=== PATIENT | male | born 1950 | race Caucasian/White ===

== ENCOUNTER → 2017-02-14 | Outpatient (CLI) | payer MEDICARE, MEDICAID | LOC: GT 07:57 | PROVIDERS: ATTEND Internal Medicine | DX: E87.1 Hypo-osmolality and hyponatremia (principal) ==

== ENCOUNTER → 2017-03-14 | Outpatient (CLI) | payer MEDICARE, MEDICAID | END | disposition home or self-care (01) | LOC: GT 06:21 | PROVIDERS: ATTEND Internal Medicine | DX: R35.0 Frequency of micturition (principal) | CPT/HCPCS: 36415; 84153; P9603 ==

== ENCOUNTER → 2017-05-02 | Outpatient (CLI) | payer MEDICARE, MEDICAID | LOC: GT 07:06 | PROVIDERS: ATTEND Internal Medicine | DX: N18.6 End stage renal disease (principal); E87.1 Hypo-osmolality and hyponatremia; E87.2 Acidosis; E87.5 Hyperkalemia; N40.1 Benign prostatic hyperplasia with lower urinary tract symptoms; D64.9 Anemia, unspecified; M62.50 Muscle wasting and atrophy, not elsewhere classified, unspecified site; I10 Essential (primary) hypertension; M62.81 Muscle weakness (generalized) | CPT/HCPCS: 36415; 80053; 83540; P9603 ==

== ENCOUNTER 2020-01-11 13:38 | Emergency (ER) | payer MEDICARE, MEDICAID ==
--- NOTE | 2020-01-11 13:46 | ED.PDOC ---
History of Present Illness - General Time Seen by Provider: 01/11/20 13:44 Source: patient - History of Present Illness Initial Comments: 69 yo male with PMH of ESRD on HD (MWF) who is sent from [facility] for cc of cough and fever. Patient reports onset of symptoms 3 days ago at the group home. He reports occasional nonproductive cough, nasal congestion, and intermittent fevers with T-max of 104 Fahrenheit at group home 3 days ago. This morning he tested positive for COVID-19 so the group home sent the patient to the ED for further evaluation. Patient reports his symptoms are moderate severity. He has been given some [id number] as needed medications at the group home with good control of symptoms. Additionally he reports some loss of taste and smell, decreased appetite, mild sore throat, and a few episodes of nonbloody nonbilious emesis since yesterday. Denies any chest pain, dyspnea, abd pain, diarrhea, leg swelling, ANDERSON/body aches. Many other [place] residents have also recently tested positive for COVID-19. Pt was reported to have hypoxia at [place] but on arrival here noted to be 99% SpO2 on RA. PCP is Dr. Alvarez. Allergies/Adverse Reactions: Allergies NO KNOWN ALLERGY Allergy (Verified 01/11/20 13:58) Home Medications: Ambulatory Orders Azithromycin Tab [Zithromax Tab] 250 mg PO DAILY 4 Days #4 tab 01/11/20 Ondansetron Odt [Zofran ODT] 8 mg PO Q8H PRN 7 Days #10 tab 01/11/20 Review of Systems - Review of Systems Review of Systems: 01/11/20 14:52 as per HPI All other Systems: Reviewed and Negative Family Medical History - Family History Mother Family History: Unknown Physical Exam - Physical Exam General Appearance: Alert, Comfortable, No apparent distress Eye Exam: bilateral normal Ears, Nose, Throat: hearing grossly normal, normal ENT inspection, normal pharynx Neck: full range of motion, supple, normal inspection Respiratory: no respiratory distress, no accessory muscle use, rales - Faint bibasilar rales noted w/o rhonchi or wheezing, good air movement throughout Cardiovascular/Chest: normal peripheral pulses, regular rate, rhythm, no edema, systolic murmur - 3/6 systolic murmur best heard at LUSB Peripheral Pulses: radial,right: 2+, radial,left: 2+ Gastrointestinal/Abdominal: normal bowel sounds, non tender, soft, no organomegaly Back Exam: normal inspection, no CVA tenderness Extremity: normal range of motion, non-tender, normal inspection, no pedal edema, no calf tenderness, other - AV fistula noted to distal LUE with good palpable thrill Neurologic: party chief II-XII nml as tested, no motor/sensory deficits, alert, normal mood/affect Skin Exam: normal color, warm/dry Progress - Progress Progress: 01/11/20 15:02 Cough, fevers -suspect due to COVID-19 PNA. Consider also bacterial PNA, sepsis, ACS, CHF, pulmonary edema, PE, DVT, flu, strep, other -pt HD stable on arrival -obtain COVID-19 panel, cardiac work-up -place PIV 01/11/20 15:56 -Pt remains stable. Still no CP, dyspnea. SpO2 98% on room air, breathing comfortably. Vitals remain normal. -Labs reveal CRP 7.8, D-dimer 1800, BNP 325, trop 0.03, WBC 5,500 w/o left shift or bands, H/H 11.5/33, PLTs 204,000. BUN/Cr elevated from ESRD. Labs otherwise largely unremarkable from chronic. -CXR no acute processes -Suspect elevated d-dimer from COVID-19 infection. Very low concern for PE currently given lack of chest sx's and normal SpO2 on RA. Pt has no documented hx of DVT/PE and does not take anticoagulation. -Discussed with Dr. Alvarez for possible disposition as finding a transfer bed will be very difficult in this otherwise stable patient. Pt unable to be admitt ed here since he requires hemodialysis. Will call back. 01/11/20 16:39 -Humberto Taylor spoke with Dr. Serra (nephrology at [facility]), who states pt may be discharged back to [place]. He will repeat labs at HD tomorrow, which patient will receive in a quarantine unit. -Will dc back to [facility] in good condition. Return warnings discussed at length. For strep pharyngitis, will treat with Azithromycin 500 mg (in ED), followed by 250 mg daily x4 days. This may also offer some benefit for COVID-19 as well. Zofran PRN Rx also given. 01/11/20 18:52 -Unable to dc back to [facility] as no more COVID beds available. Thus pt will be dc'd to [facility] temporarily until a bed becomes available back at [facility]. Brando Blandon MD Billing #[id number] 01/11/20 13:46 IV Care:Saline Lock per [employer] STAT Isolation:Airborne ONCE Telemetry STAT UA [URINALYSIS] Stat 01/11/20 14:00 EKG STAT Pulse Ox, Continuous Monitoring STAT 01/11/20 15:10 RESPIRATORY PANEL 2 Stat 01/11/20 15:40 INFLUENZA A & B BY PCR Stat GROUP A STREP SCREEN, RAPID Stat 01/12/20 14:00 Pulse Ox, Continuous Monitoring STAT 01/13/20 14:00 Pulse Ox, Continuous Monitoring STAT Laboratory Results - last 24 hr 01/11/20 01/11/20 01/11/20 14:12 14:12 14:12 WBC 5.5 RBC 3.74 L Hgb 11.5 L Hct 33.7 L MCV 90.3 MCH 30.7 MCHC 34.0 RDW 16.4 H Plt Count 204 MPV 7.4 Absolute Neuts (auto) 3.10 Absolute Lymphs (auto) 1.40 Absolute Monos (auto) 0.70 Absolute Eos (auto) 0.20 Absolute Basos (auto) 0.10 Neutrophils % 56.1 Lymphocytes % 25.9 Monocytes % 13.1 H Eosinophils % 3.4 Basophils % 1.5 PTT (SP) 30.4 D-Dimer, Quantitative 1800.0 H* Sodium 135 Potassium 4.0 Chloride 89 L Carbon Dioxide 29 Anion Gap 21.0 H BUN 45 H Creatinine 8.24 H* BUN/Creatinine Ratio 5.5 L Random Glucose 87 Serum Osmolality 281.0 Calcium 8.6 Magnesium 2.2 Total Bilirubin 0.6 AST 17 ALT 20 Alkaline Phosphatase 64 LD Total 119 Creatine Kinase 122 Troponin I C-Reactive Protein 7.8 H B-Natriuretic Peptide 325.0 H* Serum Total Protein 7.7 Albumin 3.4 Globulin 4.3 H Albumin/Globulin Ratio 0.8 L 01/11/20 14:12 WBC RBC Hgb Hct MCV MCH MCHC RDW Plt Count MPV Absolute Neuts (auto) Absolute Lymphs (auto) Absolute Monos (auto) Absolute Eos (auto) Absolute Basos (auto) Neutrophils % Lymphocytes % Monocytes % Eosinophils % Basophils % PTT (SP) D-Dimer, Quantitative Sodium Potassium Chloride Carbon Dioxide Anion Gap BUN Creatinine BUN/Creatinine Ratio Random Glucose Serum Osmolality Calcium Magnesium Total Bilirubin AST ALT Alkaline Phosphatase LD Total Creatine Kinase Troponin I 0.03 C-Reactive Protein B-Natriuretic Peptide Serum Total Protein Albumin Globulin Albumin/Globulin Ratio - EKG/XRAY/CT EKG: Sinus - Normal sinus rhythm with frequent PVCs, heart rate 70, no ST elevations or Q waves noted, axis normal, intervals normal, LVH criteria present, no prior EKG for comparison. XRAY: chest - Per my read, no acute processes. Cardiomegaly noted w/o evidence of pulmonary edema/fluid overload. Departure - Departure Clinical Impression: COVID-19, Strep pharyngitis, Elevated d-dimer Time of Disposition: 16:36 Disposition: Discharge to SNF Condition: Good Departure Forms: ED Discharge - Pt. Copy, Patient Portal Self Enrollment Instructions: Strep Throat (DC), Coronavirus Disease 2019 (COVID-19) Diet: resume usual diet Activity: increase activity as tolerated Referrals: SHAYNE MARMOLEJO [Primary Care Provider] - 1-2 Weeks Prescriptions: Azithromycin Tab [Zithromax Tab] 250 mg PO DAILY 4 Days #4 tab Ondansetron Odt [Zofran ODT] 8 mg PO Q8H PRN 7 Days #10 tab PRN Reason: Nausea Home Medications: Ambulatory Orders Azithromycin Tab [Zithromax Tab] 250 mg PO DAILY 4 Days #4 tab 01/11/20 Ondansetron Odt [Zofran ODT] 8 mg PO Q8H PRN 7 Days #10 tab 01/11/20 Additional Instructions: Take the antibiotics as directed for treatment of strep pharyngitis. Return to the ED if you develop concerning symptoms such as chest pain, shortness of breath, abdominal pain, intractable nausea & vomiting, large volume or frequent diarrhea, etc... Follow up with your primary care physician in the next 5-7 days for repeat evaluation is recommended. Dr. Serra has you scheduled for outpatient dialysis tomorrow in a quarantine unit.
--- NOTE | 2020-01-11 14:14 | RAD ---
EXAM DESCRIPTION: Chest,1 View CLINICAL HISTORY: 69 years Male, dyspnea, COVID-19+ COMPARISON: None. TECHNIQUE: AP portable chest. FINDINGS: Heart size is prominent with normal pulmonary vascularity. No consolidating infiltrate. No pulmonary mass or worrisome nodule. No pneumothorax or pleural effusion. Advanced arthritic changes of the shoulders. IMPRESSION: No acute process is identified in the chest. Electronically signed by: Moody Rodas MD 01/11/2020 2:13 PM IRON CARRIER
[2020-01-11] MEDS ORDERED: AZITHROMYCIN 250 MG TAB PO ONE (16:35)
[2020-01-11 18:36] VITALS: BP 138/78; TEMP 98.4; O2SAT 96
== END 2020-01-11 18:35 ==
LOC: ER 13:38
DX: U07.1 COVID-19 (principal); J02.0 Streptococcal pharyngitis; R79.89 Other specified abnormal findings of blood chemistry; I49.3 Ventricular premature depolarization; N18.6 End stage renal disease; I51.7 Cardiomegaly; Z99.2 Dependence on renal dialysis
CPT/HCPCS: 36415; 71045; 80053; 82550; 83615; 83735; 83880; 84484; 85025; 85379; 85730; 86140; 87486; 87502; 87581; 87633; 87635; 87880; 93005; Q0144

== ENCOUNTER 2020-01-16 01:48 | Emergency (ER) | payer MEDICARE, MEDICAID ==
[2020-01-16] MEDS ORDERED: DEXAMETHASONE INJ 10 MG/ML VIAL IV ONE (02:09)
--- NOTE | 2020-01-16 02:17 | ED.PDOC ---
History of Present Illness - General Chief Complaint: Respiratory Problem Stated Complaint: low sats, elevated temp Time Seen by Provider: 01/16/20 02:09 Source: patient, RN/MD, EMS - History of Present Illness Comments: The patient is a 69 year old male with PMH significant for ESRD on HD who is sent from [facility] for evaluation of fever and hypoxia. He was seen five days ago with cough and fever after testing positive for COVID-19. He complains of occasional dry cough and fever. he denies nausea/vomiting, shortness of breath, diarrhea or any other symptoms. He states that his symptoms are mild in severity. No other complaints at this time. Per EMS, the senior living found him to be febrile and administered tylenol and stated that his room air oxygen saturation was 54%, however, he was 89% on room air on arrival. Allergies/Adverse Reactions: Allergies NO KNOWN ALLERGY Allergy (Verified 01/11/20 13:58) Home Medications: Ambulatory Orders Azithromycin Tab [Zithromax Tab] 250 mg PO DAILY 4 Days #4 tab 01/11/20 Ondansetron Odt [Zofran ODT] 8 mg PO Q8H PRN 7 Days #10 tab 01/11/20 Azithromycin Tab [Zithromax Tab] 250 mg PO QDPC #4 tab 01/16/20 Cefpodoxime Proxetil 200 mg PO DAILY #10 tab 01/16/20 Dexamethasone Tab [Decadron Tab] 4 mg PO DAILY #7 tab 01/16/20 Review of Systems - Review of Systems Constitutional: States: chills, fever, malaise EENTM: States: no symptoms reported Respiratory: States: cough, short of breath Cardiology: Denies: chest pain, palpitations Gastrointestinal/Abdominal: Denies: abdominal pain, diarrhea, nausea, vomiting Genitourinary: Denies: dysuria, frequency, hematuria Musculoskeletal: States: no symptoms reported Skin: States: no symptoms reported Neurological: States: no symptoms reported Endocrine: States: no symptoms reported Hematologic/Lymphatic: States: no symptoms reported All other Systems: Reviewed and Negative Past Medical History (General) - Patient Medical History Hx Hypertension: Yes - Vaccination History Hx Influenza Vaccination: Yes Hx Pneumococcal Vaccination: Yes - Social History Hx Tobacco Use: No Hx Alcohol Use: No Hx Substance Use: No Hx Substance Use Treatment: No Hx Depression: No Family Medical History - Family History Mother Family History: Unknown Physical Exam - Physical Exam General Appearance: Alert, No apparent distress ENT Exam: normal ENT inspection, hearing grossly normal Neck: non-tender, full range of motion, supple, normal inspection Respiratory: normal breath sounds, no respiratory distress, no accessory muscle use Cardiovascular/Chest: normal peripheral pulses, regular rate, rhythm, no edema, no gallop Gastrointestinal/Abdominal: normal bowel sounds, non tender, soft, no organomegaly, no pulsatile mass Extremity: normal range of motion, non-tender Neurologic: no motor/sensory deficits, alert, oriented x 3 Skin Exam: normal color Progress - Progress Progress: 01/16/20 04:08 Patient reassessed, 97% on 2L NC and no increased WOB. Discussed admit but wants to be discharged. Will continue outpatient therapy with decadron, antibiotics. - Results/Orders Results/Orders: 01/16/20 02:09 Chest,1 View [RAD] Stat 01/16/20 02:53 EKG Assessment ONCE 01/16/20 03:00 EKG STAT 01/16/20 04:03 Azithromycin IV [Zithromax IV] 500 mg Sodium Chloride 0.9% 250Ml [NS 250ml] 250 ml IVPB ONCE cefTRIAXone SODIUM [Rocephin] 1 gm Sodium Chl 0.9% 50Ml Min-Bag+ [NS 50ml MINI-BAG+] 50 ml IVPB ONCE Laboratory Results - last 24 hr 01/16/20 01/16/20 02:00 02:00 WBC 7.0 RBC 3.84 L Hgb 11.7 L Hct 34.2 L MCV 89.1 MCH 30.6 MCHC 34.3 RDW 16.5 H Plt Count 193 MPV 8.0 Absolute Neuts (auto) 5.50 Absolute Lymphs (auto) 1.00 Absolute Monos (auto) 0.50 Absolute Eos (auto) 0.00 Absolute Basos (auto) 0.00 Neutrophils % 78.6 H Lymphocytes % 13.6 L Monocytes % 7.3 Eosinophils % 0.0 L Basophils % 0.5 PT 10.5 INR 1.06 PTT (SP) 31.4 D-Dimer, Quantitative 1920.0 H* Sodium 137 Potassium 3.2 L Chloride 90 L Carbon Dioxide 31 Anion Gap 19.2 H BUN 36 H Creatinine 7.56 H* BUN/Creatinine Ratio 4.8 L Random Glucose 111 H Serum Osmolality 282.8 Calcium 8.7 Magnesium 2.0 Creatine Kinase 160 CK-MB (CK-2) 1.2 CK-MB (CK-2) % Not Reportable Troponin I 0.05 MDM: Patient presents with fever and hypoxia. Workup as above. He is stable on 2L nasal cannula and does not have any increased work of breathing. Suspect secondary to COVID-19 vs possible small pneumonia. Started on rocephin and azithromycin in the ED. Discussed admission with the patient but he reported no symptoms and stated that he would like to go back to nursing facility. Risks and benefits reviewed. Confirmed with NH that they will be able to continue oxygen therapy via NC. Will start steroids, oral antibiotics. Home care and return indications reviewed. Departure - Departure Clinical Impression: COVID-19 Pneumonia Qualifiers: Pneumonia type: due to unspecified organism Laterality: right Lung location: middle lobe of lung Qualified Code(s): J18.9 - Pneumonia, unspecified organism Time of Disposition: 04:09 Disposition: Discharge to SNF Condition: Fair Departure Forms: ED Discharge - Pt. Copy, Patient Portal Self Enrollment Instructions: Community-Acquired Pneumonia, Adult (DC), Coronavirus Disease 2019 (COVID-19) Diet: resume usual diet Activity: increase activity as tolerated Referrals: SHAYNE MARMOLEJO [Primary Care Provider] - 1-2 Weeks Prescriptions: Cefpodoxime Proxetil 200 mg PO DAILY #10 tab Dexamethasone Tab [Decadron Tab] 4 mg PO DAILY #7 tab Azithromycin Tab [Zithromax Tab] 250 mg PO QDPC #4 tab Home Medications: Ambulatory Orders Azithromycin Tab [Zithromax Tab] 250 mg PO DAILY 4 Days #4 tab 01/11/20 Ondansetron Odt [Zofran ODT] 8 mg PO Q8H PRN 7 Days #10 tab 01/11/20 Azithromycin Tab [Zithromax Tab] 250 mg PO QDPC #4 tab 01/16/20 Cefpodoxime Proxetil 200 mg PO DAILY #10 tab 01/16/20 Dexamethasone Tab [Decadron Tab] 4 mg PO DAILY #7 tab 01/16/20
--- NOTE | 2020-01-16 03:55 | CT ---
EXAM DESCRIPTION: CTA Chest 01/16/2020 3:47 AM BIOTECHNICIAN CLINICAL HISTORY: 69 years, Male, shortness of breath, elevated d-dimer COMPARISON: Previous CT scan of the abdomen performed 09/29/2009 PROCEDURE: Multiple transaxial tomograms of the chest were obtained from the lung apices through the lung bases utilizing 2 mm slice thickness at 2 mm interval reconstruction after the administration of large bolus of IV contrast for complete opacification of the pulmonary arteries. Subsequent maximum intensity projection images were generated in the coronal and sagittal plane for review. An individualized dose optimization technique, Automated Exposure Control, was utilized for the performed procedure. FINDINGS: Several images are degraded by motion artifact limiting diagnostic value. There is small focus area of airspace opacity along the posterior segment right lower lobe, this is best identified on image [id number] suggestive of atelectatic changes and/or pneumonia. Minimal opacity and/or atelectasis is noted within the superior segment of the left lower lobe on image [id number]. Questionable calcified granulomas noted within the posterior segment left lower lobe on axial image 67 and coronal image 100. The trachea mainstem bronchus demonstrate to be normal. There is no significant pericardial or pleural effusions. The thoracic aorta demonstrate minimal intimal aortic arch calcification. No evidence for thoracic aortic dissection. The heart is normal in size. No evidence for right ventricular strain. There are coronary artery calcification along the LAD and right coronary artery. There is no significant mediastinal and/or hilar lymphadenopathy. The axillary regions demonstrate to be clear. Grossly the pulmonary arteries demonstrate to be normal, no significant intraluminal defect are seen that would suggest pulmonary embolus. Although the evaluation of the tertiary branches are compromised due to motion artifact. The axillary bone windows demonstrate no significant skeletal lesions. The visualized portions of the upper abdomen demonstrate to be unremarkable. IMPRESSION: COMPARISON STUDY DUE TO MOTION ARTIFACT LIMITING DIAGNOSTIC VALUE. NO GROSS EVIDENCE FOR PULMONARY EMBOLUS AND/OR SIGNIFICANT THORACIC AORTIC THORACIC DISSECTION. QUESTIONABLE SMALL FOCAL AREA OF AIRSPACE OPACITY ALONG THE MEDIAL ASPECT POSTERIOR SEGMENT RIGHT LOWER LOBE/CP ANGLE IN/OR RELATED TO ATELECTASIS. SIMILAR LESS PRONOUNCED FINDINGS ARE IDENTIFIED WITHIN THE SUPERIOR SEGMENT OF THE LEFT LOWER LOBE. Electronically signed by: Hardik Garcia MD 01/16/2020 3:54 AM BIOTECHNICIAN
[2020-01-16] MEDS ORDERED: cefTRIAXone SODIUM 1 GM in SODIUM CHL 0.9% 50ML MIN-BAG+ 50 ML IVPB ONE (04:03)
[2020-01-16] MEDS ORDERED: AZITHROMYCIN IV 500 MG in SODIUM CHLORIDE 0.9% 250ML 250 ML IVPB ONE (04:03)
[2020-01-16 04:12] VITALS: TEMP 98.7
[2020-01-16 06:59] VITALS: BP 107/75; O2SAT 96
== END 2020-01-16 07:05 ==
LOC: ER 01:48
DX: U07.1 COVID-19 (principal); J12.89 Other viral pneumonia; N18.6 End stage renal disease; I10 Essential (primary) hypertension; Z99.2 Dependence on renal dialysis
CPT/HCPCS: 71275; 80048; 82550; 82553; 84484; 85025; 85379; 85610; 85730; J0456; J0696; J1100; J7050

== ENCOUNTER → 2020-01-18 | Outpatient (CLI) | payer MEDICARE, MEDICAID | LOC: GT 08:13 | PROVIDERS: ATTEND Family Medicine | DX: R09.02 Hypoxemia (principal); R71.8 Other abnormality of red blood cells ==

== ENCOUNTER → 2020-01-24 | Outpatient (CLI) | payer MEDICARE, MEDICAID | LOC: GT 23:01 | PROVIDERS: ATTEND Internal Medicine | DX: I10 Essential (primary) hypertension (principal) ==

== ENCOUNTER → 2020-01-25 | Outpatient (CLI) | payer MEDICARE, MEDICAID | LOC: GT 21:48 | PROVIDERS: ATTEND Internal Medicine | DX: N28.9 Disorder of kidney and ureter, unspecified (principal) ==

== ENCOUNTER 2020-01-26 15:42 | Emergency (ER) | payer MEDICARE, OTHER ==
--- NOTE | 2020-01-26 16:05 | ED.PDOC ---
History of Present Illness - General Chief Complaint: GI Problem Time Seen by Provider: 01/26/20 15:59 - History of Present Illness Initial Comments: 69 yo M PMH ESRD from assisted dialysis today sent to ED for rect bleeding today. Pt. is a poor historian. Per report pt is covid+ day #14. Denies fever cough sob recent travel. Denies fever chills nausea vomiting unsure of diarrhea admits chest pain and sob denies diaphoresis. No change in diet no other c/o today. PPE worn-N95 surgical mask with attached face shield over N95 gloves and face shield over that Allergies/Adverse Reactions: Allergies NO KNOWN ALLERGY Allergy (Verified 01/16/20 04:31) Home Medications: Ambulatory Orders Azithromycin Tab [Zithromax Tab] 250 mg PO DAILY 4 Days #4 tab 01/11/20 Ondansetron Odt [Zofran ODT] 8 mg PO Q8H PRN 7 Days #10 tab 01/11/20 Azithromycin Tab [Zithromax Tab] 250 mg PO QDPC #4 tab 01/16/20 Cefpodoxime Proxetil 200 mg PO DAILY #10 tab 01/16/20 Dexamethasone Tab [Decadron Tab] 4 mg PO DAILY #7 tab 01/16/20 Review of Systems - Review of Systems Constitutional: States: see HPI EENTM: States: see HPI Respiratory: States: see HPI Cardiology: States: see HPI Gastrointestinal/Abdominal: States: see HPI Genitourinary: States: see HPI Musculoskeletal: States: see HPI Skin: States: see HPI Neurological: States: see HPI Endocrine: States: see HPI All other Systems: Reviewed and Negative Past Medical History (General) - Patient Medical History Hx Congestive Heart Failure: No Hx Hypertension: Yes Hx Diabetes: No Hx Gastroesophageal Reflux: Yes Hx Renal Disease: Yes - Vaccination History Hx Influenza Vaccination: Yes Hx Pneumococcal Vaccination: Yes - Social History Hx Tobacco Use: No Hx Alcohol Use: No Hx Substance Use: No Hx Substance Use Treatment: No Hx Depression: No Family Medical History - Family History Mother Family History: Unknown Physical Exam - Physical Exam General Appearance: No apparent distress Eye Exam: bilateral normal Ears, Nose, Throat: normal ENT inspection Neck: non-tender Respiratory: no respiratory distress Cardiovascular/Chest: regular rate, rhythm, irregularly irregular Gastrointestinal/Abdominal: non tender, soft Rectal Exam: deferred Back Exam: normal inspection Extremity: non-tender, other - Dialysis shunt good thrill left forearm Neurologic: no motor/sensory deficits Skin Exam: normal color Progress - Progress Progress: 01/26/20 16:06 A/P-Chest Pain LGIB-iv cbc cmp trop pt ptt cxr ct abdomen pelvis reassess EKG-Non specific TW changes 86bpm with underlying flutter waves approx 2:1 motion artifact no STEMI 01/26/20 16:27 01/26/20 16:47 Laboratory Tests 01/26/20 01/26/20 01/26/20 16:19 16:19 16:19 PT 12.2 H INR 1.23 H PTT (SP) 24.2 Sodium 136 Potassium 3.6 Chloride 90 L Carbon Dioxide 27 Anion Gap 22.6 H BUN 51 H D Creatinine 5.32 H BUN/Creatinine Ratio 9.6 L Random Glucose 125 H Serum Osmolality 287.1 Lactic Acid Calcium 8.4 Total Bilirubin 0.8 AST 37 ALT 32 Alkaline Phosphatase 57 Troponin I 0.02 Serum Total Protein 6.7 Albumin 2.6 L Globulin 4.1 H Albumin/Globulin Ratio 0.6 L 01/26/20 16:19 PT INR PTT (SP) Sodium Potassium Chloride Carbon Dioxide Anion Gap BUN Creatinine BUN/Creatinine Ratio Random Glucose Serum Osmolality Lactic Acid 3.7 H* Calcium Total Bilirubin AST ALT Alkaline Phosphatase Troponin I Serum Total Protein Albumin Globulin Albumin/Globulin Ratio Pt. with lactic acidosis and Pneumonia, Sepsis, known COVID positive started zosyn vancomycin fluids and protonix 01/26/20 16:50 EXAM DESCRIPTION: Chest,1 View CLINICAL HISTORY: 69 years Male, abdominal pain rectal bleed COMPARISON: Previous study January 11, 2020 TECHNIQUE: AP po rtable chest. FINDINGS: Heart size is large with centrally increased pulmonary vascularity. Patchy infiltrates are seen in the perihilar regions and in both lower lobes. Patchy infiltrate in the left upper lobe. There is sparing of the right apex. These findings appear new or increased compared to previous study. No pulmonary mass or worrisome nodule. No pneumothorax or pleural effusion. Advanced arthritic changes of the shoulders. Bones are otherwise unremarkable. IMPRESSION: Bilateral pulmonary infiltrates consistent with pneumonia. Electronically signed by: Moody Rodas MD 01/26/2020 4:16 PM [employer] 01/26/20 17:46 EXAM DESCRIPTION: Abdoment/Pelvis w/o Contrast CLINICAL HISTORY: 69 years, Male, rectal bleeding COMPARISON: Abdominal sonogram July 03, 2011, CT abdomen and pelvis July 17, 2011 TECHNIQUE: CT of the abdomen and pelvis is performed according to our non contrast protocol. FINDINGS: The lung bases are abnormal with infiltrates consistent with pneumonia. The heart is large with extensive coronary arterial calcification. Liver, spleen, and pancreas are unremarkable. Adrenal glands appear normal. Abnormal kidneys with atrophic parenchyma consistent with chronic renal parenchymal disease. Renal cysts are simple and hemorrhagic. This impression could be confirmed with sonography. Patient had a previous abdominal sonogram July 03, 2011 which showed bilateral renal cysts which were smaller at that time. Calcifications are present consistent with nonobstructing stone in the lower calyx of the right kidney as well as tiny punctate calculi or vascular calcifications in the left kidney.. Small bowel loops appear normal in caliber with normal wall thickness. There is no lymphadenopathy, inflammation, or free fluid observed. Ventral herniation of fat at the umbilical level. In the pelvis, the appendix is normal. No inflammation around the cecum or terminal ileum or sigmoid colon. No stones in the distal ureters or bladder. Bladder appears thick-walled and a bladder mass cannot be excluded on the axial images. Sagittal images are less worrisome however. Sono examination of a distended urinary bladder may be helpful to rule out pathologic diffuse bladder wall thickening or infiltrative neoplasm of the anterosuperior bladder wall. Rectal wall thickness is normal for degree of distention. No free fluid or mass in the pelvis. Prostate appears prominent measuring 4.3 cm in transverse dimension. Bilateral erosion of the hip joints with acetabular protrusion. Mass in the right obturator region is likely related to arthritis rather than neoplasm. No inguinal or lower pelvic adenopathy. Coronal and sagittal reformatted images confirm the findings. Chronic subcapital fracture of the proximal left femur with proximal displacement of the major distal fracture fragment and sclerotic margins consistent with nonunion. Severe long-standing osteoarthrosis of the right hip with eroded right femoral head and acetabular fossa. The clinical history is rectal bleeding. No rectal mass is identified. No thickening of the wall of the sigmoid colon. IMPRESSION: Chronic renal parenchymal disease with bilateral renal lesions consistent with cystic and hemorrhagic cysts. Bilateral nonobstructing renal calculi. Prominent prostate with prominent bladder wall thickness. See above. Ventral herniation of fat at the umbilical level. Bilateral pulmonary infiltrates consistent with pneumonia. This exam was performed according to our departmental dose-optimization program, which includes automated exposure control, adjustment of the mA and/or kV according to patient size and/or use of iterative reconstruction technique. Total DLP equals 1276.69 mGycm. Electronically signed by: Moody Rodas MD 01/26/2020 5:03 PM [employer] Laboratory Tests 01/26/20 01/26/20 01/26/20 16:19 16:19 16:19 WBC 14.3 H RBC 4.20 L Hgb 12.9 L Hct 37.3 L MCV 88.9 MCH 30.7 MCHC 34.5 RDW 17.1 H Plt Count 347 MPV 8.0 Absolute Neuts (auto) Not Reportable Absolute Lymphs (auto) Not Reportable Absolute Monos (auto) Not Reportable Absolute Eos (auto) Not Reportable Neutrophils % Not Reportable Neutrophils % (Manual) 79.0 H Lymphocytes % Not Reportable Lymphocytes % (Manual) 14.0 Monocytes % Not Reportable Monocytes % (Manual) 7.0 Eosinophils % Not Reportable Basophils % Not Reportable Nucleated RBCs 3.0 Platelet Estimate Normal RBC Morphology Normal rbc morph PT 12.2 H INR 1.23 H PTT (SP) 24.2 Sodium 136 Potassium 3.6 Chloride 90 L Carbon Dioxide 27 Anion Gap 22.6 H BUN 51 H D Creatinine 5.32 H BUN/Creatinine Ratio 9.6 L Random Glucose 125 H Serum Osmolality 287.1 Lactic Acid Calcium 8.4 Total Bilirubin 0.8 AST 37 ALT 32 Alkaline Phosphatase 57 Troponin I Serum Total Protein 6.7 Albumin 2.6 L Globulin 4.1 H Albumin/Globulin Ratio 0.6 L Stool Occult Blood 01/26/20 01/26/20 01/26/20 16:19 16:19 16:56 WBC RBC Hgb Hct MCV MCH MCHC RDW Plt Count MPV Absolute Neuts (auto) Absolute Lymphs (auto) Absolute Monos (auto) Absolute Eos (auto) Neutrophils % Neutrophils % (Manual) Lymphocytes % Lymphocytes % (Manual) Monocytes % Monocytes % (Manual) Eosinophils % Basophils % Nucleated RBCs Platelet Estimate RBC Morphology PT INR PTT (SP) Sodium Potassium Chloride Carbon Dioxide Anion Gap BUN Creatinine BUN/Creatinine Ratio Random Glucose Serum Osmolality Lactic Acid 3.7 H* Calcium Total Bilirubin AST ALT Alkaline Phosphatase Troponin I 0.02 Serum Total Protein Albumin Globulin Albumin/Globulin Ratio Stool Occult Blood Positive H 01/26/20 19:[address] Joshua Narvaez [facility] accepts transfer Departure - Departure Clinical Impression: Lactic acidosis, ESRD (end stage renal disease), COVID-19, LGI bleed Pneumonia Qualifiers: Pneumonia type: due to unspecified organism Laterality: unspecified laterality Lung location: unspecified part of lung Qualified Code(s): J18.9 - Pneumonia, unspecified organism Time of Disposition: 19:16 Disposition: Transfer to Hospital Condition: Fair Departure Forms: ED Discharge - Pt. Copy, Patient Portal Self Enrollment Referrals: SHAYNE MARMOLEJO [Primary Care Provider] - 1-2 Days Home Medications: Ambulatory Orders Azithromycin Tab [Zithromax Tab] 250 mg PO DAILY 4 Days #4 tab 01/11/20 Ondansetron Odt [Zofran ODT] 8 mg PO Q8H PRN 7 Days #10 tab 01/11/20 Azithromycin Tab [Zithromax Tab] 250 mg PO QDPC #4 tab 01/16/20 Cefpodoxime Proxetil 200 mg PO DAILY #10 tab 01/16/20 Dexamethasone Tab [Decadron Tab] 4 mg PO DAILY #7 tab 01/16/20 Transfer to Outside Facility - Transfer Information Decision to Transfer Date: 01/26/20 Decision to Transfer Time: 19:16 Reason for Transfer: specialized care not available Accepting Provider:: Dr. Lewis Accepting Facility: [facility]
--- NOTE | 2020-01-26 16:17 | RAD ---
EXAM DESCRIPTION: Chest,1 View CLINICAL HISTORY: 69 years Male, abdominal pain rectal bleed COMPARISON: Previous study January 11, 2020 TECHNIQUE: AP portable chest. FINDINGS: Heart size is large with centrally increased pulmonary vascularity. Patchy infiltrates are seen in the perihilar regions and in both lower lobes. Patchy infiltrate in the left upper lobe. There is sparing of the right apex. These findings appear new or increased compared to previous study. No pulmonary mass or worrisome nodule. No pneumothorax or pleural effusion. Advanced arthritic changes of the shoulders. Bones are otherwise unremarkable. IMPRESSION: Bilateral pulmonary infiltrates consistent with pneumonia. Electronically signed by: Moody Rodas MD 01/26/2020 4:16 PM [facility]
[2020-01-26] MEDS ORDERED: VANCOMYCIN HCL INJ 1,000 MG in SODIUM CHLORIDE 0.9% 250ML 250 ML IVPB ONE (16:44)
[2020-01-26] MEDS ORDERED: SODIUM CHLORIDE 0.9% 1000ML 1,000 ML IVS ONE (16:44)
[2020-01-26] MEDS ORDERED: PIPERACILLIN/TAZOBACTAM 3.375 GM in SODIUM CHLORIDE 0.9% 100ML 100 ML IVPB ONE (16:44)
[2020-01-26] MEDS ORDERED: PANTOPRAZOLE INJECTION 80 MG in SODIUM CHLORIDE 0.9% 100ML 80 ML IVPB ONE (16:45)
[2020-01-26] MEDS ORDERED: DEXAMETHASONE INJ 10 MG/ML VIAL IV ONE (16:53)
--- NOTE | 2020-01-26 17:04 | CT ---
EXAM DESCRIPTION: Abdoment/Pelvis w/o Contrast CLINICAL HISTORY: 69 years, Male, rectal bleeding COMPARISON: Abdominal sonogram July 03, 2011, CT abdomen and pelvis July 17, 2011 TECHNIQUE: CT of the abdomen and pelvis is performed according to our non contrast protocol. FINDINGS: The lung bases are abnormal with infiltrates consistent with pneumonia. The heart is large with extensive coronary arterial calcification. Liver, spleen, and pancreas are unremarkable. Adrenal glands appear normal. Abnormal kidneys with atrophic parenchyma consistent with chronic renal parenchymal disease. Renal cysts are simple and hemorrhagic. This impression could be confirmed with sonography. Patient had a previous abdominal sonogram July 03, 2011 which showed bilateral renal cysts which were smaller at that time. Calcifications are present consistent with nonobstructing stone in the lower calyx of the right kidney as well as tiny punctate calculi or vascular calcifications in the left kidney.. Small bowel loops appear normal in caliber with normal wall thickness. There is no lymphadenopathy, inflammation, or free fluid observed. Ventral herniation of fat at the umbilical level. In the pelvis, the appendix is normal. No inflammation around the cecum or terminal ileum or sigmoid colon. No stones in the distal ureters or bladder. Bladder appears thick-walled and a bladder mass cannot be excluded on the axial images. Sagittal images are less worrisome however. Sono examination of a distended urinary bladder may be helpful to rule out pathologic diffuse bladder wall thickening or infiltrative neoplasm of the anterosuperior bladder wall. Rectal wall thickness is normal for degree of distention. No free fluid or mass in the pelvis. Prostate appears prominent measuring 4.3 cm in transverse dimension. Bilateral erosion of the hip joints with acetabular protrusion. Mass in the right obturator region is likely related to arthritis rather than neoplasm. No inguinal or lower pelvic adenopathy. Coronal and sagittal reformatted images confirm the findings. Chronic subcapital fracture of the proximal left femur with proximal displacement of the major distal fracture fragment and sclerotic margins consistent with nonunion. Severe long-standing osteoarthrosis of the right hip with eroded right femoral head and acetabular fossa. The clinical history is rectal bleeding. No rectal mass is identified. No thickening of the wall of the sigmoid colon. IMPRESSION: Chronic renal parenchymal disease with bilateral renal lesions consistent with cystic and hemorrhagic cysts. Bilateral nonobstructing renal calculi. Prominent prostate with prominent bladder wall thickness. See above. Ventral herniation of fat at the umbilical level. Bilateral pulmonary infiltrates consistent with pneumonia. This exam was performed according to our departmental dose-optimization program, which includes automated exposure control, adjustment of the mA and/or kV according to patient size and/or use of iterative reconstruction technique. Total DLP equals 1276.69 mGycm. Electronically signed by: Moody Rodas MD 01/26/2020 5:03 PM [employer]
[2020-01-26 19:59] VITALS: BP 103/51; TEMP 98; O2SAT 94
== END 2020-01-26 20:05 | disposition short-term general hospital (02) ==
LOC: ER 15:42
DX: U07.1 COVID-19 (principal); J12.89 Other viral pneumonia; K62.5 Hemorrhage of anus and rectum; N18.6 End stage renal disease; E87.2 Acidosis; I12.0 Hypertensive chronic kidney disease with stage 5 chronic kidney disease or end stage renal disease; K21.9 Gastro-esophageal reflux disease without esophagitis; Z99.2 Dependence on renal dialysis; Z79.899 Other long term (current) drug therapy
CPT/HCPCS: 36415; 71045; 74176; 80053; 82270; 83605; 84484; 85025; 85610; 85730; 87040; 87635; 93005; J1100; J2543; J3370; J7030; J7050